=== PATIENT | male | born 1990 | race Caucasian/White ===

== ENCOUNTER 2019-09-04 12:02 | Emergency (ER) | payer BC, OTHER ==
[2019-09-04] MEDS ORDERED: KETOROLAC 30 MG/ML 1 ML VIAL IVP STA (12:26)
[2019-09-04 12:43] VITALS: RESP 16
[2019-09-04 12:51] LABS: Basophils % (A) 0 %; Eosinophils # (A) 0.3 k/uL (0-0.7); Eosinophils % (A) 2 %; HCT 37.7 % (39.0-53.0); HGB 12.3 gm/dL (13.0-17.5); Lymphocytes # (A) 2.4 k/uL (1.0-4.8); Lymphocytes % (A) 15 %; MCH 29.6 pg (25.0-35.0); MCHC 32.7 g/dL (31.0-37.0); MCV 90.6 fL (80.0-100.0); Mean Platelet Volume 7.4; Monocytes # (A) 0.6 k/uL (0-1.0); Monocytes % (A) 4 %; Neutrophils # (A) 12.6 k/uL (1.3-7.7); Neutrophils % (A) 79 %; Platelet Count 311 k/uL (150-450); RBC 4.17 m/uL (4.30-5.90); RDW 12.7 % (11.5-15.5)
[2019-09-04 13:09] LABS: ALT 47 U/L (4-49); AST 31 U/L (17-59); African American GFR (CKD) >90 (>60 ml/min/1.73 sqM); Albumin 4.7 g/dL (3.5-5.0); Alkaline Phosphatase 90 U/L (38-126); Anion Gap 7 mmol/L; Blood Urea Nitrogen 16 mg/dL (9-20); C Reactive Protein 12.5 mg/L (<10.0); Carbon Dioxide 27 mmol/L (22-30); Chloride 105 mmol/L (98-107); Glucose 97 mg/dL (74-99); Non-African American GFR(CKD) >90 (>60 ml/min/1.73 sqM); Potassium 4.5 mmol/L (3.5-5.1); Sodium 139 mmol/L (137-145); Total Bilirubin 0.3 mg/dL (0.2-1.3); Total Protein 7.4 g/dL (6.3-8.2); Uric Acid 9.2 mg/dL (3.5-8.5)
--- NOTE | 2019-09-04 13:14 | XR ---
EXAMINATION TYPE: XR knee complete LT DATE OF EXAM: 09/04/2019 CLINICAL HISTORY: History of gout with pain and swelling. TECHNIQUE: Three views of the left knee are obtained. COMPARISON: None. FINDINGS: There is no acute fracture/dislocation evident in left knee. The tri-compartment joint sp aces appear within normal limits. Well-defined ovoid 6 mm bony fragment from the anterior inferior as pect of patella could reflect product of prior trauma is stable. There is new moderate prepatellar an d superficial infrapatellar subcutaneous edema. IMPRESSION: As above.
--- NOTE | 2019-09-04 13:51 | ED ---
General Adult HPI - General Chief complaint: Extremity Problem,Nontraumatic Stated complaint: L Knee Swelling Time Seen by Provider: 09/04/19 12:05 Source: patient Mode of arrival: ambulatory Limitations: no limitations - History of Present Illness Initial comments: The patient is a 29-year-old male with past history of gout who presents to the emergency room with reported left knee pain. He states that the pain started last night. He woke this morning to a very red and swollen left knee. No history of knee pain or trauma in the past. States that he does have a history of gout which normally affects his ankles and toes. States he last had a bout 1 week ago in his right ankle. States he is taking colchicine which she does have prescribed to him. Does believe the prescription may be . States that this improved. The patient is concerned that he was, dictating and this is because his knee pain. He denies hardware or previous surgeries in the extremity. No calf pain or swelling. Denies repetitive bending or kneeling. No fevers or chills. Admits to pain with flexion and extension of the left knee. Has been able to ambulance on it without difficulty. There are no other alleviating, precipitating or modifying factors - Related Data Home Medications Medication Instructions Recorded Confirmed traMADol HCl [Ultram] 50 mg PO Q6H PRN 05/23/16 05/23/16 Previous Rx's Medication Instructions Recorded Ondansetron Odt [Zofran Odt] 4 mg PO Q12HR 5 Days tab 05/23/16 Cephalexin [Keflex] 500 mg PO Q6HR #28 cap 09/04/19 Sulfamethox-Tmp 800-160Mg [Bactrim 2 each PO Q12HR #28 tab 09/04/19 Ds] Allergies Allergy/AdvReac Type Severity Reaction Status Date / Time diphenhydramine Allergy Nausea Verified 09/04/19 12:07 [From Benadryl] Penicillins AdvReac Itching Verified 05/23/16 15:19 Review of Systems ROS Statement: Those systems with pertinent positive or pertinent negative responses have been documented in the HPI. ROS Other: All systems not noted in ROS Statement are negative. Past Medical History Past Medical History: No Reported History Additional Past Medical History / Comment(s): gout History of Any Multi-Drug Resistant Organisms: None Reported Additional Past Surgical History / Comment(s): lasix surgery Past Psychological History: No Psychological Hx Reported Smoking Status: Current every day smoker Past Alcohol Use History: None Reported Past Drug Use History: Marijuana General Exam Limitations: no limitations Course Vital Signs 09/04/19 09/04/19 09/04/19 12:02 12:42 14:53 Temperature 98.0 F 97.9 F Pulse Rate 104 H 78 Respiratory 18 16 16 Rate Blood Pressure 157/81 138/76 O2 Sat by Pulse 98 97 Oximetry Medical Decision Making - Medical Decision Making Upon arrival the patient is placed in room 27. A thorough history and physical exam was performed. I did conduct laboratory studies. With blood cell count is 16. Uric acid elevated at 9.2. Reactive protein 12.5. X-ray of the patient's knee demonstrates no acute fracture or dislocation. Tricompartment joint spaces appear within normal limits. Well-defined ovoid 6 linear bony fragment from the anterior inferior aspect of the patella may represent prior trauma. Moderate prepatellar and superficial infrapatellar subcutaneous edema. I did discuss the case with [facility] from [facility]. She is in the emergency room and evaluated the patient herself. She discuss his case with Dr. Borjas. The consensus is a patient has a prepatellar bursitis versus septic bursitis. The patient was given a dose of Rocephin through the IV. Orthopedics did recommend that the patient be discharged home with oral antibiotics. He is to call and make an appointment with the office for further evaluation. He is to alternate doing heat and cold. I will place the patient on Bactrim and Keflex. The patient understood this. If he has any new or worsening symptoms she should return to the emergency room. Patient was discharged home in stable condition - Lab Data Result diagrams: 09/04/19 12:35 09/04/19 12:35 Lab Results 09/04/19 09/04/19 Range/Units 12:35 12:35 WBC 16.0 H (3.8-10.6) k/uL RBC 4.17 L (4.30-5.90) m/uL Hgb 12.3 L (13.0-17.5) gm/dL Hct 37.7 L (39.0-53.0) % MCV 90.6 (80.0-100.0) fL MCH 29.6 (25.0-35.0) pg MCHC 32.7 (31.0-37.0) g/dL RDW 12.7 (11.5-15.5) % Plt Count 311 (150-450) k/uL Neutrophils % 79 % Lymphocytes % 15 % Monocytes % 4 % Eosinophils % 2 % Basophils % 0 % Neutrophils # 12.6 H (1.3-7.7) k/uL Lymphocytes # 2.4 (1.0-4.8) k/uL Monocytes # 0.6 (0-1.0) k/uL Eosinophils # 0.3 (0-0.7) k/uL Basophils # 0.0 (0-0.2) k/uL ESR 8 (0-15) mm/hr Sodium 139 (137-145) mmol/L Potassium 4.5 (3.5-5.1) mmol/L Chloride 105 (98-107) mmol/L Carbon Dioxide 27 (22-30) mmol/L Anion Gap 7 mmol/L BUN 16 (9-20) mg/dL Creatinine 0.98 (0.66-1.25) mg/dL Est GFR (CKD-EPI)AfAm >90 (>60 ml/min/1.73 sqM) Est GFR (CKD-EPI)NonAf >90 (>60 ml/min/1.73 sqM) Glucose 97 (74-99) mg/dL Uric Acid 9.2 H (3.5-8.5) mg/dL Calcium 10.0 (8.4-10.2) mg/dL Total Bilirubin 0.3 (0.2-1.3) mg/dL AST 31 (17-59) U/L ALT 47 (4-49) U/L Alkaline Phosphatase 90 (38-126) U/L C-Reactive Protein 12.5 H (<10.0) mg/L Total Protein 7.4 (6.3-8.2) g/dL Albumin 4.7 (3.5-5.0) g/dL Disposition Clinical Impression: Septic prepatellar bursitis of left knee, Knee pain Disposition: HOME SELF-CARE Condition: Stable Instructions (If sedation given, give patient instructions): Knee Bursitis (ED) Additional Instructions: Please call to make an appointment with Dr. Borjas in 2-4 days. Return to the emergency room for any new or worsening symptoms Prescriptions: Sulfamethox-Tmp 800-160Mg [Bactrim Ds] 2 each PO Q12HR #28 tab Cephalexin [Keflex] 500 mg PO Q6HR #28 cap Is patient prescribed a controlled substance at d/c from ED?: No Referrals: Nonstaff,Physician [Primary Care Provider] - 1-2 days Time of Disposition: 14:56
[2019-09-04 13:59] LABS: Erythrocyte Sedimentation Rate 8 mm/hr (0-15)
--- NOTE | 2019-09-04 14:32 | P.CNOR ---
History of Present Illness - [facility] Consult date: 09/04/19 Consult reason: other (Left knee pain and swelling) History of present illness: The patient is a 29 y/o male with a history of gout, who presented to emergency department today for left knee swelling and pain. He states the knee pain started last night. He states the knee was very swollen and red this morning. The swelling has improved throughout the day. He recently started a new job. The patient does have a history of gout that usually only effects the right foot. He had some colchicine at home and he was taking that for the right foot a few weeks ago. He has not taken colchicine for at least 5 days. The right foot is feeling fine and he thinks he was favoring the right foot and was putting more pressure on the left leg. No specific injury preceded the knee pain. He does have a tattoo to the superior anterior knee but that is not new. He is able to walk but states he walks with his knee straight. The patient denies fever, chills, rigors, and ill-feeling. No worsening of redness or warmth to the knee since last night. Review of Systems Constitutional: Denies chills, Denies fever, Denies lethargy Cardiovascular: Denies chest pain, Denies shortness of breath Respiratory: Denies cough Musculoskeletal: left: knee pain, knee stiffness, knee swelling Past Medical History Past Medical History: No Reported History Additional Past Medical History / Comment(s): gout History of Any Multi-Drug Resistant Organisms: None Reported Additional Past Surgical History / Comment(s): lasix surgery Past Psychological History: No Psychological Hx Reported Smoking Status: Current every day smoker Past Alcohol Use History: None Reported Past Drug Use History: Marijuana Medications and Allergies Home Medications Medication Instructions Recorded Confirmed Type Ondansetron Odt [Zofran Odt] 4 mg PO Q12HR 5 Days tab 05/23/16 Rx traMADol HCl [Ultram] 50 mg PO Q6H PRN 05/23/16 05/23/16 History Cephalexin [Keflex] 500 mg PO Q6HR #28 cap 09/04/19 Rx Sulfamethox-Tmp 800-160Mg [Bactrim 2 each PO Q12HR #28 tab 09/04/19 Rx Ds] Allergies Allergy/AdvReac Type Severity Reaction Status Date / Time diphenhydramine Allergy Nausea Verified 09/04/19 12:07 [From Benadryl] Penicillins AdvReac Itching Verified 05/23/16 15:19 Physical Examination There is mild swelling and moderate tenderness over the prepatellar bursa and surrounding the entire patella, with very slight erythema. No drainage and slight warmth. No significant tenderness over medial or lateral joint lines. No significant irritability with patellar compression. Good passive ROM of the knee. Walks well with heel to gait. Sensation intact to light touch over anterior, posterior, medial, and lateral thigh, also intact over anterior, posterior, medial, and lateral leg. Dorsalis pedis and posterior tibial pulses are 2+. Capillary refill is less than 2 seconds. No trophic skin changes. No ulceration. Skin is healthy, pink, and warm. Results - Labs Labs: Abnormal Lab Results - Last 24 Hours (Table) 09/04/19 09/04/19 Range/Units 12:35 12:35 WBC 16.0 H (3.8-10.6) k/uL RBC 4.17 L (4.30-5.90) m/uL Hgb 12.3 L (13.0-17.5) gm/dL Hct 37.7 L (39.0-53.0) % Neutrophils # 12.6 H (1.3-7.7) k/uL Uric Acid 9.2 H (3.5-8.5) mg/dL C-Reactive Protein 12.5 H (<10.0) mg/L H & H 09/04/19 Range/Units 12:35 Hgb 12.3 L (13.0-17.5) gm/dL Hct 37.7 L (39.0-53.0) % Result Diagrams: 09/04/19 12:35 09/04/19 12:35 - Diagnostic results Knee x-ray: image reviewed (Three views of the left knee reveal a possible old injury to the inferior pole of the patella. No acute fractures or bony lesion present. ) Assessment and Plan (1) Prepatellar bursitis Status: Acute Code(s): M70.40 - PREPATELLAR BURSITIS, UNSPECIFIED KNEE SNOMED Code(s): 35529709 (2) Knee pain Status: Acute Code(s): M25.569 - PAIN IN UNSPECIFIED KNEE SNOMED Code(s): 77483841 Plan: The clinical and x-ray findings were discussed with the patient. The case was discussed with Dr. Borjas. We recommending conservative measures to the left knee. He will be started on oral antibiotics for coverage of possible septic bursitis, which is unlikely due to his presentation of only slight swelling, erythema, and warmth. We will avoid aspiration of the bursa at this time. He may alternative heat and cold to the knee. The patient will follow up in our office if he continues to have problems with the knee or if there is worsening redness, warm, swelling, and pain.
[2019-09-04] MEDS ORDERED: cefTRIAXone IN SWFI 1,000 MG/10 ML SYRINGE IVP STA (14:42)
[2019-09-04 14:55] VITALS: BP 138/76; PULSE 78; TEMP 97.9
== END 2019-09-04 15:15 | disposition home or self-care (01) ==
LOC: EC 12:02
DX: M71.162 Other infective bursitis, left knee (principal); F17.200 Nicotine dependence, unspecified, uncomplicated; Z88.0 Allergy status to penicillin; Z88.8 Allergy status to other drugs, medicaments and biological substances
CPT/HCPCS: 36415; 80053; 85652; 84550; 85025; 86140; 73562; 99284; 96374; 96375; J0696; J1885

== ENCOUNTER 2020-01-21 19:20 | Emergency (ER) | payer OTHER ==
[2020-01-21 19:36] VITALS: RESP 18
[2020-01-21] MEDS ORDERED: FLUORESCEIN STRIPS 1 MG STRIP BOTH EYES ONE (19:40)
[2020-01-21] MEDS ORDERED: PROPARACAINE 0.5% OPHTH DROPS 15 ML BTL BOTH EYES STA (19:40)
[2020-01-21] MEDS ORDERED: ERYTHROMYCIN 5 MG/GM OPHTH OINT 1 GM TUBE RIGHT EYE STA (19:49)
[2020-01-21] MEDS ORDERED: DIPH,PERTUS(ACELL)TETVAC-LF 0.5 ML VIAL IM ONE (19:53)
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
[2020-01-21 20:47] VITALS: BP 143/90; PULSE 62; TEMP 98.6
== END 2020-01-21 20:46 | disposition home or self-care (01) ==
LOC: EC 19:20
DX: T20.10XA Burn of first degree of head, face, and neck, unspecified site, initial encounter (principal); T22.111A Burn of first degree of right forearm, initial encounter; T23.231A Burn of second degree of multiple right fingers (nail), not including thumb, initial encounter; H53.8 Other visual disturbances; T31.0 Burns involving less than 10% of body surface; F17.200 Nicotine dependence, unspecified, uncomplicated; Z88.0 Allergy status to penicillin; Z88.8 Allergy status to other drugs, medicaments and biological substances; X08.8XXA Exposure to other specified smoke, fire and flames, initial encounter; Y93.89 Activity, other specified
CPT/HCPCS: 90471; 90715; 99283

== ENCOUNTER 2020-01-25 15:28 | Emergency (ER) | payer OTHER ==
[2020-01-25 15:34] VITALS: BP 133/72; PULSE 97; RESP 18; TEMP 99
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
== END 2020-01-25 16:05 | disposition home or self-care (01) ==
LOC: EC 15:28
DX: T23.001D Burn of unspecified degree of right hand, unspecified site, subsequent encounter (principal); F17.200 Nicotine dependence, unspecified, uncomplicated; Z88.0 Allergy status to penicillin; Z88.6 Allergy status to analgesic agent; X08.8XXD Exposure to other specified smoke, fire and flames, subsequent encounter
CPT/HCPCS: 99283

== ENCOUNTER 2020-10-30 20:04 | Emergency (ER) | payer OTHER ==
[2020-10-30 20:11] VITALS: RESP 18; TEMP 98
[2020-10-30] MEDS ORDERED: ASPIRIN 81 MG PO STA (20:22)
--- NOTE | 2020-10-30 21:13 | XR ---
EXAMINATION TYPE: XR chest 2V DATE OF EXAM: 10/30/2020 COMPARISON: NONE HISTORY: Pain TECHNIQUE: 2 views FINDINGS: Heart and mediastinum are normal. Lungs are clear. Diaphragm is normal. Bony thorax is inta ct. The pulmonary vascularity is normal. IMPRESSION: Normal chest.
[2020-10-30 21:24] LABS: Basophils # (A) 0.1 k/uL (0-0.2); Basophils % (A) 1 %; Eosinophils # (A) 0.4 k/uL (0-0.7); Eosinophils % (A) 5 %; HCT 38.6 % (39.0-53.0); HGB 13.5 gm/dL (13.0-17.5); Lymphocytes # (A) 3.1 k/uL (1.0-4.8); Lymphocytes % (A) 32 %; MCH 30.8 pg (25.0-35.0); Mean Platelet Volume 7.3; Monocytes # (A) 0.4 k/uL (0-1.0); Monocytes % (A) 4 %; Neutrophils # (A) 5.6 k/uL (1.3-7.7); Neutrophils % (A) 58 %; Platelet Count 293 k/uL (150-450); RBC 4.39 m/uL (4.30-5.90); RDW 12.7 % (11.5-15.5); WBC 9.7 k/uL (3.8-10.6)
[2020-10-30 21:34] LABS: Potassium 4.1 mmol/L (3.5-5.1)
[2020-10-30 21:35] LABS: ALT 49 U/L (4-49); AST 31 U/L (17-59); African American GFR (CKD) >90 (>60 ml/min/1.73 sqM); Albumin 4.2 g/dL (3.5-5.0); Alkaline Phosphatase 64 U/L (38-126); Anion Gap 8 mmol/L; Blood Urea Nitrogen 18 mg/dL (9-20); Calcium 10.5 mg/dL (8.4-10.2); Carbon Dioxide 26 mmol/L (22-30); Chloride 106 mmol/L (98-107); Glucose 110 mg/dL (74-99); Magnesium 1.8 mg/dL (1.6-2.3); Non-African American GFR(CKD) 87 (>60 ml/min/1.73 sqM); Sodium 140 mmol/L (137-145); Total Bilirubin 0.2 mg/dL (0.2-1.3); Total Protein 6.6 g/dL (6.3-8.2)
[2020-10-30 21:47] LABS: D-Dimer <0.17 mg/L FEU (<0.60); INR 0.9 (<1.2); Partial Thromboplastin Time 23.9 sec (22.0-30.0)
--- NOTE | 2020-10-30 22:21 | ED ---
Chest Pain HPI - General Chief Complaint: Chest Pain Stated Complaint: Chest pain Time Seen by Provider: 10/30/20 20:21 Source: patient Mode of arrival: ambulatory Limitations: no limitations - History of Present Illness Initial Comments: 30-year-old male presenting to the ER today for chief complaint of chest discomfort pt states that 50 minutes ago he was at work watching customers when he felt a aching pain in his left side of chest. pt states it radiated down the left arm an dinto the back slightly, a full sensation. Denies ripping tearing pain. pt states that the pain is starting to feel better but it scared him. pt denies hx of DM, HTN HLD. Pt is a current everyday smoker. Pt states he did feel like headed at the time of onset but no dyspnea. pt denies vomiting-had some nausea. pt denies leg swelling, hemoptysis, hx of DVT/PE or pleuritic chest pain. Patietn denies family history of premature CAD. Patient on arrival appears well nontoxic in no aute distress. no acute EKG findings. - Related Data Home Medications Medication Instructions Recorded Confirmed Cyanocobalamin (Vitamin B-12) 1,000 mcg PO DAILY 10/30/20 10/30/20 [Vitamin B-12] Krill Oil 500 mg PO DAILY 10/30/20 10/30/20 Allergies Allergy/AdvReac Type Severity Reaction Status Date / Time diphenhydramine Allergy Nausea Verified 10/30/20 20:45 [From Benadryl] Penicillins AdvReac Itching Verified 10/30/20 20:45 Review of Systems ROS Statement: Those systems with pertinent positive or pertinent negative responses have been documented in the HPI. ROS Other: All systems not noted in ROS Statement are negative. Past Medical History Past Medical History: No Reported History Additional Past Medical History / Comment(s): gout History of Any Multi-Drug Resistant Organisms: None Reported Past Surgical History: Appendectomy Additional Past Surgical History / Comment(s): lasix surgery Past Psychological History: PTSD Smoking Status: Current every day smoker Past Alcohol Use History: None Reported Past Drug Use History: Marijuana General Exam - General Exam Comments Initial Comments: General: The patient is awake and alert, in no distress, and does not appear acutely ill. Eye: Pupils are equal, round and reactive to light, extra-ocular movements are intact. No nystagmus. There is normal conjunctiva bilaterally. No signs of icterus. Ears, nose, mouth and throat: There are moist mucous membranes and no oral lesions. Neck: The neck is supple, there is no tenderness or JVD. Cardiovascular: There is a regular rate and rhythm. No murmur, rub or gallop is appreciated. Respiratory: Lungs are clear to auscultation, respirations are non-labored, breath sounds are equal. No wheezes, stridor, rales, or rhonchi. Gastrointestinal: Soft, non-distended, non-tender abdomen without masses or organomegaly noted. There is no rebound or guarding present. Musculoskeletal: Normal ROM, no tenderness. Strength 5/5. Sensation intact. Radial pulses equal bilaterally 2+. Neurological: A&O x 3. CN II-XII intact grossly, There are no obvious motor or sensory deficits. Coordination appears grossly intact. Speech is normal. Skin: Skin is warm and dry and no rashes or lesions are noted. Psychiatric: Cooperative, appropriate mood & affect, normal judgment. Limitations: no limitations Course Vital Signs 10/30/20 20:08 Temperature 98.0 F Pulse Rate 102 H Respiratory 18 Rate Blood Pressure 143/83 O2 Sat by Pulse 97 Oximetry Chest Pain MDM - MDM 30-year-old every day smoker presenting for chest discomfort. resolved on re- evaluation. pt appears well nontoxic. low heart score. troponin (-) x2. pt cxr and lungs clear. dimer (-). pt will be discharged with pcp f/u recommend outpatient stress testing return for worsening symptoms/recurrent Ventricular rate 96 bpm, CA interval 128 ms, QRS duration 90 ms, QT/QTC 334/421 ms normal sinus no S elevation or depression appreciated. Disposition Clinical Impression: Chest discomfort Disposition: HOME SELF-CARE Condition: Good Instructions (If sedation given, give patient instructions): Chest Pain (ED) Additional Instructions: Please use medication as discussed. Please follow-up with family doctor in the next 2 days. Please return to emergency room if the symptoms increase or worsen or for any other concerns. Is patient prescribed a controlled substance at d/c from ED?: No Referrals: None,Stated [Primary Care Provider] - 1-2 days Time of Disposition: 00:23
[2020-10-31 02:47] VITALS: BP 132/86; PULSE 92
== END 2020-10-31 00:45 | disposition home or self-care (01) ==
LOC: EC 20:04
DX: R07.89 Other chest pain (principal); F17.200 Nicotine dependence, unspecified, uncomplicated; F12.90 Cannabis use, unspecified, uncomplicated; Z90.09 Acquired absence of other part of head and neck
CPT/HCPCS: 36415; 71046; 80053; 83735; 84484; 85025; 85379; 85610; 85730; 93005; 99285

== ENCOUNTER 2021-07-11 12:09 | Emergency (ER) | payer OTHER ==
[2021-07-11 12:19] VITALS: BP 141/84; TEMP 97.8
[2021-07-11] MEDS ORDERED: cefTRIAXone IN SWFI 1,000 MG/10 ML SYRINGE IVP STA (13:06)
[2021-07-11] MEDS ORDERED: KETOROLAC 15 MG/ML 1 ML VIAL IVP STA (13:36)
[2021-07-11 13:38] LABS: Basophils % (A) 0 %; Eosinophils # (A) 0.2 k/uL (0-0.7); Eosinophils % (A) 2 %; HCT 41.1 % (39.0-53.0); HGB 13.7 gm/dL (13.0-17.5); Lymphocytes # (A) 2.7 k/uL (1.0-4.8); Lymphocytes % (A) 27 %; MCH 30.7 pg (25.0-35.0); MCHC 33.2 g/dL (31.0-37.0); MCV 92.4 fL (80.0-100.0); Monocytes # (A) 0.3 k/uL (0-1.0); Monocytes % (A) 3 %; Neutrophils # (A) 6.7 k/uL (1.3-7.7); Neutrophils % (A) 66 %; Platelet Count 299 k/uL (150-450); RBC 4.45 m/uL (4.30-5.90); RDW 13.2 % (11.5-15.5)
--- NOTE | 2021-07-11 13:42 | ED ---
General Adult HPI - General Chief complaint: Extremity Problem,Nontraumatic Stated complaint: lt knee pain/swelling Time Seen by Provider: 07/11/21 12:41 Source: patient, family Mode of arrival: ambulatory - History of Present Illness Initial comments: 30-year-old male with a past medical history of gout presents to the emergency room for left knee pain. Patient has had left knee pain since a week ago, or Sunday. On Sunday patient started to have swelling of the left knee. On he went to the urgent care and he was told he probably has psoriatic arthritis. He tried to follow up with Dr. Reece's office as he was told he needs to see a teacher assistant but they were not able to see him as they do not take his insurance. Patient states that it has gotten worse and is painful to bend and walk on now. He denies fevers but did feel sweaty last night. He emma es injury.Patient has no other complaints at this time including shortness of breath, chest pain, abdominal pain, nausea or vomiting, headache, or visual changes. - Related Data Previous Rx's Medication Instructions Recorded Cephalexin [Keflex] 500 mg PO Q6HR 10 Days #40 cap 07/11/21 Indomethacin [Indocin] 50 mg PO TID PRN #15 capsule 07/11/21 Allergies Allergy/AdvReac Type Severity Reaction Status Date / Time Penicillins Allergy Anaphylaxis Verified 07/11/21 14:00 diphenhydramine AdvReac Jittery Verified 07/11/21 14:00 [From Benadryl] Review of Systems ROS Statement: Those systems with pertinent positive or pertinent negative responses have been documented in the HPI. ROS Other: All systems not noted in ROS Statement are negative. Past Medical History Past Medical History: No Reported History Additional Past Medical History / Comment(s): gout History of Any Multi-Drug Resistant Organisms: None Reported Past Surgical History: Appendectomy Additional Past Surgical History / Comment(s): lasix surgery Past Psychological History: PTSD Smoking Status: Current every day smoker Past Alcohol Use History: None Reported Past Drug Use History: Marijuana General Exam General appearance: alert, in no apparent distress Head exam: Present: atraumatic Eye exam: Present: normal appearance, PERRL, EOMI. Absent: scleral icterus, conjunctival injection ENT exam: Present: normal exam, mucous membranes moist Neck exam: Present: normal inspection, full ROM. Absent: tenderness Respiratory exam: Present: normal lung sounds bilaterally. Absent: respiratory distress, wheezes Cardiovascular Exam: Present: regular rate, normal rhythm, normal heart sounds Extremities exam: Present: tenderness (Generalized tenderness of the anterior left knee.), normal capillary refill (Capillary refill less than 2 seconds, pedal 2+ left lower extremity.), joint swelling (Mild edema of the left knee. Mild erythema associated as well.). Absent: full ROM (30 flexion of the left knee, extension to neutral position.) Course Vital Signs 07/11/21 12:13 Temperature 97.8 F Pulse Rate 111 H Respiratory 20 Rate Blood Pressure 141/84 O2 Sat by Pulse 97 Oximetry Medical Decision Making - Medical Decision Making Vitals are stable. Patient afebrile 3. CBC is normal. White count is 10. CMP unremarkable. CRP slightly elevated 2.4. ESR normal. Uric acid 10.3. X- ray shows moderate prepatellar and superficial infrapatellar subcutaneous edema, correlate for recurrent bursitis. This is consistent with clinical presentation. At this time low concern for subarachnoid is given patient has had symptoms for over a week now and labs are not unusual. He is afebrile. At this time I spoke with [facility] who is on-call orthopedics. Recommend starting him on cefazolin as well as gout medication. Patient will follow-up with them this week. He will return here for any worsening symptoms. - Lab Data Result diagrams: 07/11/21 13:28 07/11/21 13:28 Lab Results 07/11/21 07/11/21 07/11/21 Range/Units 13:28 13:28 13:28 WBC 10.0 (3.8-10.6) k/uL RBC 4.45 (4.30-5.90) m/uL Hgb 13.7 (13.0-17.5) gm/dL Hct 41.1 (39.0-53.0) % MCV 92.4 (80.0-100.0) fL MCH 30.7 (25.0-35.0) pg MCHC 33.2 (31.0-37.0) g/dL RDW 13.2 (11.5-15.5) % Plt Count 299 (150-450) k/uL MPV 8.0 Neutrophils % 66 % Lymphocytes % 27 % Monocytes % 3 % Eosinophils % 2 % Basophils % 0 % Neutrophils # 6.7 (1.3-7.7) k/uL Lymphocytes # 2.7 (1.0-4.8) k/uL Monocytes # 0.3 (0-1.0) k/uL Eosinophils # 0.2 (0-0.7) k/uL Basophils # 0.0 (0-0.2) k/uL ESR 8 (0-15) mm/hr PT 9.8 (9.0-12.0) sec INR 0.9 (<1.2) APTT 24.3 (22.0-30.0) sec Sodium 140 (137-145) mmol/L Potassium 4.5 (3.5-5.1) mmol/L Chloride 105 (98-107) mmol/L Carbon Dioxide 25 (22-30) mmol/L Anion Gap 10 mmol/L BUN 11 (9-20) mg/dL Creatinine 1.11 (0.66-1.25) mg/dL Est GFR (CKD-EPI)AfAm >90 (>60 ml/min/1.73 sqM) Est GFR (CKD-EPI)NonAf 88 (>60 ml/min/1.73 sqM) Glucose 94 (74-99) mg/dL Plasma Lactic Acid Esteban (0.7-2.0) mmol/L Uric Acid (3.5-8.5) mg/dL Calcium 9.8 (8.4-10.2) mg/dL Total Bilirubin 0.4 (0.2-1.3) mg/dL AST 26 (17-59) U/L ALT 34 (4-49) U/L Alkaline Phosphatase 75 (38-126) U/L C-Reactive Protein 2.4 H (<1.0) mg/dL Total Protein 7.1 (6.3-8.2) g/dL Albumin 4.4 (3.5-5.0) g/dL 07/11/21 07/11/21 Range/Units 13:28 13:28 WBC (3.8-10.6) k/uL RBC (4.30-5.90) m/uL Hgb (13.0-17.5) gm/dL Hct (39.0-53.0) % MCV (80.0-100.0) fL MCH (25.0-35.0) pg MCHC (31.0-37.0) g/dL RDW (11.5-15.5) % Plt Count (150-450) k/uL MPV Neutrophils % % Lymphocytes % % Monocytes % % Eosinophils % % Basophils % % Neutrophils # (1.3-7.7) k/uL Lymphocytes # (1.0-4.8) k/uL Monocytes # (0-1.0) k/uL Eosinophils # (0-0.7) k/uL Basophils # (0-0.2) k/uL ESR (0-15) mm/hr PT (9.0-12.0) sec INR (<1.2) APTT (22.0-30.0) sec Sodium (137-145) mmol/L Potassium (3.5-5.1) mmol/L Chloride (98-107) mmol/L Carbon Dioxide (22-30) mmol/L Anion Gap mmol/L BUN (9-20) mg/dL Creatinine (0.66-1.25) mg/dL Est GFR (CKD-EPI)AfAm (>60 ml/min/1.73 sqM) Est GFR (CKD-EPI)NonAf (>60 ml/min/1.73 sqM) Glucose (74-99) mg/dL Plasma Lactic Acid Esteban 1.1 (0.7-2.0) mmol/L Uric Acid 10.3 H (3.5-8.5) mg/dL Calcium (8.4-10.2) mg/dL Total Bilirubin (0.2-1.3) mg/dL AST (17-59) U/L ALT (4-49) U/L Alkaline Phosphatase (38-126) U/L C-Reactive Protein (<1.0) mg/dL Total Protein (6.3-8.2) g/dL Albumin (3.5-5.0) g/dL Disposition Clinical Impression: Prepatellar bursitis, Knee pain Disposition: HOME SELF-CARE Condition: Good Instructions (If sedation given, give patient instructions): Knee Bursitis (ED) Additional Instructions: Please take antibiotic as directed. Take and amoxicillin as directed. Follow- up with orthopedics by calling today for the earliest appointment. They want to see you this week. Return to the emergency room for any worsening symptoms. Prescriptions: Indomethacin [Indocin] 50 mg PO TID PRN #15 capsule PRN Reason: Pain Cephalexin [Keflex] 500 mg PO Q6HR 10 Days #40 cap Is patient prescribed a controlled substance at d/c from ED?: No Referrals: Alexandr Dean DO [Doctor of Osteopathic Medicine] - 1-2 days Time of Disposition: 15:10
[2021-07-11 13:47] LABS: INR 0.9 (<1.2); Partial Thromboplastin Time 24.3 sec (22.0-30.0); Prothrombin Time 9.8 sec (9.0-12.0)
--- NOTE | 2021-07-11 13:51 | XR ---
EXAMINATION TYPE: XR knee complete LT DATE OF EXAM: 07/11/2021 CLINICAL HISTORY: Pain and swelling for one week. TECHNIQUE: Three views of the left knee are obtained. COMPARISON: Prior left knee x-ray September 04, 2019. FINDINGS: There is no acute fracture/dislocation evident in left knee. The tri-compartment joint sp aces remain within normal limits. Stable well-defined 6 mm ossific fragment overlying the anterior-in ferior aspect of the patella could reflect product of old trauma. Moderate prepatellar and superficia l infrapatellar subcutaneous edema is redemonstrated measuring up to 2.5 cm in thickness. Correlate f or recurrent bursitis. IMPRESSION: As above
[2021-07-11 13:54] LABS: ALT 34 U/L (4-49); AST 26 U/L (17-59); African American GFR (CKD) >90 (>60 ml/min/1.73 sqM); Albumin 4.4 g/dL (3.5-5.0); Alkaline Phosphatase 75 U/L (38-126); Anion Gap 10 mmol/L; Blood Urea Nitrogen 11 mg/dL (9-20); C Reactive Protein 2.4 mg/dL (<1.0); Calcium 9.8 mg/dL (8.4-10.2); Carbon Dioxide 25 mmol/L (22-30); Chloride 105 mmol/L (98-107); Glucose 94 mg/dL (74-99); Non-African American GFR(CKD) 88 (>60 ml/min/1.73 sqM); Potassium 4.5 mmol/L (3.5-5.1); Sodium 140 mmol/L (137-145); Total Bilirubin 0.4 mg/dL (0.2-1.3); Total Protein 7.1 g/dL (6.3-8.2)
[2021-07-11 14:28] LABS: Erythrocyte Sedimentation Rate 8 mm/hr (0-15)
[2021-07-11 15:34] VITALS: PULSE 78; RESP 16
== END 2021-07-11 15:34 | disposition home or self-care (01) ==
LOC: EC 12:09
DX: M70.42 Prepatellar bursitis, left knee (principal); F17.200 Nicotine dependence, unspecified, uncomplicated; Z88.0 Allergy status to penicillin; Z88.1 Allergy status to other antibiotic agents
CPT/HCPCS: 36415; 80053; 85652; 83605; 84550; 85025; 85610; 85730; 86140; 87040; 73562; 99283; 96374; 96375; J0696; J1885

== ENCOUNTER 2021-09-06 22:45 | Emergency (ER) | payer OTHER ==
[2021-09-06 22:52] VITALS: TEMP 98.3
[2021-09-07] MEDS ORDERED: predniSONE 20 MG TAB PO STA (00:35)
[2021-09-07] MEDS ORDERED: COLCHICINE 0.6 MG EACH PO STA (00:35)
[2021-09-07] MEDS ORDERED: INDOMETHACIN 25 MG CAP PO STA (00:35)
--- NOTE | 2021-09-07 00:58 | ED ---
General Adult HPI - General Chief complaint: Extremity Problem,Nontraumatic Stated complaint: Gout, fever Time Seen by Provider: 09/07/21 00:22 Source: patient Mode of arrival: ambulatory Limitations: no limitations - History of Present Illness Initial comments: This patient is a 31-year-old man with procedures history of gout, who states that he feels he is having a flareup of this. Patient states that he started having symptoms to the right foot yesterday. He has had increasing pain and swelling as well as some redness. The patient notes that foot is tender to movement or palpation. He states is identical to previous gout flare up. Onset/Timin -: days(s) Location: right, lower extremity Radiation: non-radiation Quality: aching Consistency: constant Improves with: none Worsens with: movement Associated Symptoms: denies other symptoms Treatments Prior to Arrival: none - Related Data Previous Rx's Medication Instructions Recorded Cephalexin [Keflex] 500 mg PO Q6HR 10 Days #40 cap 07/11/21 Indomethacin [Indocin] 50 mg PO TID PRN #15 capsule 07/11/21 Colchicine 0.6 mg PO Q1H PRN #12 capsule 09/07/21 Indomethacin [Indocin] 50 mg PO TID #12 capsule 09/07/21 predniSONE 60 mg PO DAILY #30 tab 09/07/21 Allergies Allergy/AdvReac Type Severity Reaction Status Date / Time Penicillins Allergy Anaphylaxis Verified 09/06/21 22:52 diphenhydramine AdvReac Jittery Verified 09/06/21 22:52 [From Benadryl] Review of Systems ROS Statement: Those systems with pertinent positive or pertinent negative responses have been documented in the HPI. ROS Other: All systems not noted in ROS Statement are negative. Constitutional: Denies: fever, chills Respiratory: Denies: cough, dyspnea Cardiovascular: Denies: chest pain, palpitations, edema Gastrointestinal: Denies: abdominal pain, vomiting, diarrhea Genitourinary: Denies: dysuria Musculoskeletal: Reports: as per HPI, joint swelling, arthralgia Skin: Denies: rash Neurological: Denies: headache, weakness, numbness Past Medical History Past Medical History: No Reported History Additional Past Medical History / Comment(s): gout History of Any Multi-Drug Resistant Organisms: None Reported Past Surgical History: Appendectomy Additional Past Surgical History / Comment(s): lasix surgery Past Psychological History: PTSD Smoking Status: Current every day smoker Past Alcohol Use History: None Reported Past Drug Use History: Marijuana General Exam Limitations: no limitations General appearance: alert, in no apparent distress Head exam: Present: atraumatic, normocephalic Eye exam: Present: normal appearance. Absent: scleral icterus, conjunctival injection Respiratory exam: Present: normal lung sounds bilaterally. Absent: respiratory distress, wheezes, rales, rhonchi, stridor Cardiovascular Exam: Present: regular rate, normal rhythm, normal heart sounds. Absent: systolic murmur, diastolic murmur, rubs, gallop GI/Abdominal exam: Present: soft. Absent: distended, tenderness, guarding, rebound, rigid Right Knee exam: Present: normal inspection, full ROM. Absent: tenderness, swelling Lower Leg exam: Present: normal inspection, full ROM. Absent: tenderness, swelling Ankle exam: Present: normal inspection, full ROM. Absent: tenderness, swelling Foot/Toe exam: Present: tenderness, swelling, erythema Neurovascular tendon exam: Present: no vascular compromise. Absent: pulse deficit, abnormal cap refill, motor deficit, sensory deficit, tendon deficit, extremity cold to touch, pallor Course Vital Signs 09/06/21 22:50 Temperature 98.3 F Pulse Rate 107 H Respiratory 20 Rate Blood Pressure 130/76 O2 Sat by Pulse 98 Oximetry Disposition Clinical Impression: Gout Disposition: HOME SELF-CARE Condition: Good Instructions (If sedation given, give patient instructions): Low Purine Diet (ED), Gout (ED) Prescriptions: Colchicine 0.6 mg PO Q1H PRN #12 capsule PRN Reason: Pain Indomethacin [Indocin] 50 mg PO TID #12 capsule predniSONE 60 mg PO DAILY #30 tab Is patient prescribed a controlled substance at d/c from ED?: No Referrals: None,Stated [Primary Care Provider] - 1-2 days
[2021-09-07 01:18] VITALS: BP 132/87; PULSE 71; RESP 18
== END 2021-09-07 01:20 | disposition home or self-care (01) ==
LOC: EC 22:45
DX: M10.9 Gout, unspecified (principal); F17.200 Nicotine dependence, unspecified, uncomplicated; Z88.0 Allergy status to penicillin; Z88.8 Allergy status to other drugs, medicaments and biological substances
CPT/HCPCS: 99283; J7512

== ENCOUNTER 2022-03-26 07:22 | Emergency (ER) | payer OTHER ==
[2022-03-26 07:34] VITALS: BP 120/68; PULSE 105; RESP 20; TEMP 97.8
--- NOTE | 2022-03-26 07:56 | ED ---
General Adult HPI - General Chief complaint: Extremity Problem,Nontraumatic Stated complaint: Knee infection Time Seen by Provider: 03/26/22 07:35 Source: patient, RN notes reviewed, old records reviewed Mode of arrival: ambulatory Limitations: no limitations - History of Present Illness Initial comments: This is a 31-year-old male who presents emergency Department complaining that his left knee hurts. Patient states he in the past has had a bursa infection and in fact just like this. Patient notices a little swelling on top of his injury. Patella region. And patient believes is tender and warm. Patient denies any injury but he states he is up and down. 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 Patient denies any fever chills. Patient denies any red streaking. Patient states this started last time and then he got considerably worse. Patient does have full range of motion of his knee. Patient has no other complaints. - Related Data Previous Rx's Medication Instructions Recorded Cephalexin [Keflex] 500 mg PO Q6HR 10 Days #40 cap 07/11/21 Indomethacin [Indocin] 50 mg PO TID PRN #15 capsule 07/11/21 Colchicine 0.6 mg PO Q1H PRN #12 capsule 09/07/21 Indomethacin [Indocin] 50 mg PO TID #12 capsule 09/07/21 predniSONE 60 mg PO DAILY #30 tab 09/07/21 Ibuprofen [Motrin] 600 mg PO Q6HR PRN #20 tab 03/26/22 Sulfamethox-Tmp 800-160Mg [Bactrim 1 each PO Q12HR #20 tab 03/26/22 DS 800-160 mg] Allergies Allergy/AdvReac Type Severity Reaction Status Date / Time Penicillins Allergy Anaphylaxis Verified 03/26/22 07:34 diphenhydramine AdvReac Jittery Verified 03/26/22 07:34 [From Benadryl] Review of Systems ROS Statement: Those systems with pertinent positive or pertinent negative responses have been documented in the HPI. ROS Other: All systems not noted in ROS Statement are negative. Past Medical History Past Medical History: No Reported History Additional Past Medical History / Comment(s): gout History of Any Multi-Drug Resistant Organisms: None Reported Past Surgical History: Appendectomy Additional Past Surgical History / Comment(s): lasix surgery Past Psychological History: PTSD Smoking Status: Current every day smoker Past Alcohol Use History: None Reported Past Drug Use History: Marijuana General Exam - General Exam Comments Initial Comments: GENERAL Patient is well-developed and well-nourished. Patient is in mild distress. EYES Patient's pupils are equal and round. Extraocular motion is intact SKIN Unremarkable NEURO The patient is alert and oriented 3 PYSCH Patient has normal interpersonal interactions. MUSCULOSKELETAL Patient's left knee has some swelling over the patella and is tender to palpate the area is not erythematous. Patient has no ligamentous laxity. Patient's full range of motion of the knee. Limitations: no limitations Course Vital Signs 03/26/22 07:31 Temperature 97.8 F Pulse Rate 105 H Respiratory 20 Rate Blood Pressure 120/68 O2 Sat by Pulse 97 Oximetry Disposition Clinical Impression: Suprapatellar bursitis of left knee Disposition: HOME SELF-CARE Condition: Good Instructions (If sedation given, give patient instructions): Knee Bursitis (ED) Prescriptions: Sulfamethox-Tmp 800-160Mg [Bactrim DS 800-160 mg] 1 each PO Q12HR #20 tab Ibuprofen [Motrin] 600 mg PO Q6HR PRN #20 tab PRN Reason: For pain Is patient prescribed a controlled substance at d/c from ED?: No Referrals: None,Stated [Primary Care Provider] - 1-2 days Time of Disposition: 07:55
== END 2022-03-26 08:20 | disposition home or self-care (01) ==
LOC: EC 07:22
DX: M70.52 Other bursitis of knee, left knee (principal); F17.200 Nicotine dependence, unspecified, uncomplicated; Z88.0 Allergy status to penicillin; Z88.8 Allergy status to other drugs, medicaments and biological substances
CPT/HCPCS: 99283